=== PATIENT | male | born 1955 | race Hispanic/Latino ===

== ENCOUNTER 2023-08-18 07:52 | Emergency (ER) | payer OTHER ==
[~2023-08-18] VITALS: Ht 180.3 cm; Wt 90.7 kg
[2023-08-18 08:49] LABS: BASOPHILS # (AUTO) 0.05 K/uL (0.00-0.20); HEMATOCRIT 39.5 % (42-54); IMMATURE GRANULOCYTE ABSOLUTE 0.02 K/uL (0-1); LYMPHOCYTES # (AUTO) 1.6 K/uL (1.0-4.8); LYMPHOCYTES % (AUTO) 31.4 % (21.0-51.0); MEAN CORPUSCULAR HEMOGLOBIN 33.5 pg (27.0-33.0); MEAN CORPUSCULAR HGB CONC 34.4 g/dL (32.0-36.0); MEAN CORPUSCULAR VOLUME 97.3 fL (79-99); MONOCYTES # (AUTO) 0.5 K/uL (0.1-1.0); MONOCYTES % (AUTO) 9.7 % (3.0-13.0); NEUTROPHILS # (AUTO) 2.5 K/uL (1.8-7.7); NEUTROPHILS % (AUTO) 49.5 % (40.0-77.0); PLATELET COUNT (AUTO) 237 K/uL (130-400); RED BLOOD CELL COUNT(AUTO) 4.06 MIL/uL (4.50-6.20); RED CELL DISTRIBUTION WIDTH 12.3 % (11.0-15.5)
[2023-08-18 09:06] LABS: ALBUMIN 3.7 g/dL (3.5-5.0); BILIRUBIN,TOTAL 0.5 mg/dL (0.2-1.0); POTASSIUM 4.1 mmol/L (3.5-5.1); TOTAL PROTEIN, SERUM 7.7 g/dL (6.0-8.3)
[2023-08-18] MEDS ORDERED: IOHEXOL 350 MG/ML 100ML INFUS..BTL IV ONE ×2 (09:27→15:49)
[2023-08-18] MEDS ORDERED: ASPIRIN 325MG TAB PO ONE (09:30)
[2023-08-18 20:04] LABS: APPEARANCE,URINE CLEAR (CLEAR); BILIRUBIN,URINE NEGATIVE (NEGATIVE); COLOR,URINE COLORLESS (YELLOW); GLUCOSE, URINE (UA) NEGATIVE (NEGATIVE); KETONES,URINE NEGATIVE (NEGATIVE); LEUKOCYTE ESTERASE ,URINE NEGATIVE Leu/uL (NEGATIVE); NITRATE,URINE NEGATIVE (NEGATIVE); OCCULT BLOOD,URINE NEGATIVE (NEGATIVE); PROTEIN,URINE NEGATIVE (NEGATIVE); UROBILINOGEN,URINE 0.2 mg/dL (0.2-1.0)
[2023-08-18 20:06] LABS: ADD UA MICROSCOPIC YES
[2023-08-18 21:54] VITALS: BP 118/59; PULSE 69; RESP 18; O2SAT 99
== END 2023-08-18 22:57 | disposition short-term general hospital (02) ==
LOC: EDH 07:52
DX: I63.9 Cerebral infarction, unspecified (principal); I10 Essential (primary) hypertension; F32.A Depression, unspecified; Z79.82 Long term (current) use of aspirin
CPT/HCPCS: 99285; 70450; 84484; 80053; 85025; 81001; 36415; 70496; 70498; 93005; Q9967 ×2

== ENCOUNTER → 2025-01-17 | Outpatient (CLI) | payer OTHER ==
[2025-01-17 10:39] LABS: CREATININE 1.1 mg/dL (0.5-1.3)
== END | disposition home or self-care (01) ==
LOC: LAB 09:45
PROVIDERS: ATTEND Internal Medicine
DX: I27.20 Pulmonary hypertension, unspecified (principal)
CPT/HCPCS: 36415; 82565; 84520

== ENCOUNTER → 2025-01-21 | Outpatient (CLI) | payer OTHER ==
[~2025-01-21] MED LIST: IOHEXOL-350 50ML VIAL IV ONE
--- NOTE | 2025-01-21 14:31 | HMCIMG ---
CT angiogram chest CLINICAL INDICATION: Pulmonary hypertension, unspecified COMPARISON: None. CT Dose Index (CTDI): 113.50 mGy Dose Length Product (DLP): 1408.10 total mGy PROTOCOL: Contrast: 100 cc of Isovue-370, injected IV, no complications Examination is done at 2.5 millimeter volumetric acquisition after contrast administration. Photography is done at 5 millimeter thick intervals for the thorax. FINDINGS: There is no evidence of pulmonary embolism. The airway is intact. The trachea and major bronchi are unremarkable. No pulmonary infiltrates or mass lesions are seen. No pleural effusions are identified. The exam of the preethi and mediastinum is unremarkable. No evidence of hilar enlargement is seen. The aorta shows no aneurysmal dilatation or significant atheromatous calcification. There is no thoracic aortic dissection. No significant brachiocephalic vascular abnormalities are seen. The heart is unremarkable. It is not enlarged. No significant coronary arterial calcifications are seen. There is no pericardial effusion. The rib cage appears unremarkable. The soft tissues of the chest wall are unremarkable. The dorsal spine shows no significant abnormalities. Limited evaluation of the upper abdomen demonstrates no gross abnormalities. IMPRESSION: No evidence of pulmonary embolism. Clear lungs. This study was performed using dose reduction techniques to include automated exposure control and/or adjustment of the mA and/or kV according to patient size.
--- NOTE | 2025-01-21 17:02 | HMCSR ---
APPROVED REPORT EXAM: Two-dimensional and M-mode echocardiogram with Doppler and color Doppler. INDICATION ICD: I27.20 2D Dimensions RVDd4.0 cmLVEF(%)58.1 (>50%)LVED Vol(simp.)105.8 mL IVSd0.9 (0.7-1.1cm)FS(%)31 %LVES Vol(simp.)47.3 mL LVDd5.0 (3.8-5.6cm)LA (2D)4.3 (1.6-4.0cm)LVEF(%, simp.)55 % PWd1.0 (0.7-1.1cm)Ao Root(2D)3.7 (2.0-3.7cm)LA ESV INDEX (BP)42.73 mL/m2 LVDs3.5 (2.5-4.0cm)LVOT diam2.1 (1.8-2.4cm) IVC diam1.3 cm M-Mode Dimensions EPSS0.3 cm LA (MM)4.9 (1.6-4.0cm) Ao Root(MM)2.6 (2.0-3.7cm) Aortic Valve AoV Vmax1.3 m/Pierre Peak GR7.1 mmHgLVOT Vmax1.0 m/s AoV VTI0.3 mAo Mean GR3.8 mmHgLVOT VTI0.24 m ALFREDO (VMAX)2.78 cm2AVA (VTI) 2.8 cm2 Mitral Valve MV E Vmax68.3 cm/sDECEL Jmof633 ms MV A Uxew264.4 cm/sP 1/2 T63 ms E/A ratio0.7MVA (PHT)3.5 cm2 TDI E/E' Medial7.4E/E' Lateral7.1 Medial E' Peak V9.27 cm/sLateral E' Peak V9.56 cm/s Pulmonary Valve PV Vmax0.8 m/sPV VTI0.17 mPV Mean GR1.2 mmHg PV Peak GR2.6 mmHg Tricuspid Valve TR Vmax1.8 m/sRVSP13.6 mmHg TR Peak GR13.6 mmHg Left Ventricle The left ventricle is normal size. There is normal LV segmental wall motion. There is normal left lupe tricular wall thickness. LVEF is 50-55%. The left ventricular diastolic function is normal. Right Ventricle The right ventricle is normal size. The right ventricular systolic function is normal. Atria The left atrium is moderately dilated. The right atrium size is normal. Aortic Valve The aortic valve is normal in structure. No aortic regurgitation is present. There is no aortic valvu lar stenosis. Mitral Valve The mitral valve is normal in structure. Mitral regurgitation is trace There is no mitral valve steno sis. Tricuspid Valve The tricuspid valve is normal in structure. There is trivial tricuspid valve regurgitation noted. Pulmonic Valve Pulmonic valve is not well visualized. There is no pulmonic valvular regurgitation. Great Vessels The aortic root is normal in size. The IVC is normal in size and collapses >50% with inspiration. Pericardium There is no pericardial effusion. Other Information Quality : Average Conclusion The left ventricle is normal size. LVEF is 50-55% with normal LV segmental wall motion. The left ventricular diastolic function is normal. The right ventricular systolic function is normal. The left atrium is moderately dilated. No hemodynamically significant valvular abnormalities. There is no pericardial effusion.
== END | disposition home or self-care (01) ==
LOC: RAH 12:02
PROVIDERS: ATTEND Internal Medicine
DX: I27.20 Pulmonary hypertension, unspecified (principal)
CPT/HCPCS: 93306; 71260; Q9967

== ENCOUNTER → 2025-03-05 | Outpatient (CLI) | payer OTHER ==
[2025-03-05] MEDS: REGADENOSON 0.4 MG/5 ML PF SYG IVP ONE (09:45)
--- NOTE | 2025-03-06 07:45 | HMCSR ---
APPROVED REPORT TEST INDICATIONS Dyspnea Consent: The procedure was explained and understood by the patient. Informerd consent was witnessed Ray Olivarez Jr (N)(ARRT) First, low dose rest was performed then high dose stress. RESTING DATA: The resting ekg shows: NSR Rest SPECT myocardial perfusion imaging was performed in supine position minutes following the intra venous injection of 11 mCi of Tc-99 Sestamibi. Time of rest injection: 914 Date: 03/05/2025 PHARMACOLOGIC STRESS: Pharmacologic stress test was performed by injecting regadenoson 0.4 mg IV push followed by the intra venous injection of 27 mCi of Tc-99 Sestamibi. Time of stress injection: 0 Date: 03/05/2025 Heart Rate at time of stress injection: 56 bpm. The images were gated to evaluate regional wall motion and calculate left ventricular ejection fracti on. STRESS DETAILS Reason for Termination: Infusion complete Stress Symptoms: Dyspnea Max HR Achieved: 86 bpm % of APMHR Achieved: 66 Max Blood Pressure: 124/64 mmHg Stress ECG: NSR Conclusion No ischemia No infarct LV ejection fraction 50% Normal LV wall motion Normal LV size at rest and stress No increased lung uptake
== END | disposition home or self-care (01) ==
LOC: RAH 08:22
PROVIDERS: ATTEND Internal Medicine
DX: R06.02 Shortness of breath (principal)
CPT/HCPCS: 78452; 93017; J2785; A9500 ×2

== ENCOUNTER → 2025-05-02 | Outpatient (CLI) | payer OTHER ==
--- NOTE | 2025-05-03 08:47 | HMCSR ---
APPROVED REPORT EXAM: Two-dimensional and M-mode echocardiogram with Doppler and color Doppler. INDICATION ICD: I51.3 Contrast Details Indication: Rule out PFO Agent/Amount Used: Agitated Saline 2D Dimensions RVDd4.7 cmLVEF(%)63.2 (>50%)LVED Vol(simp.)112.0 mL IVSd0.9 (0.7-1.1cm)FS(%)34 %LVES Vol(simp.)51.0 mL LVDd5.1 (3.8-5.6cm)Ao Root(2D)3.4 (2.0-3.7cm)LVEF(%, simp.)55 % PWd1.0 (0.7-1.1cm)LVOT diam2.3 (1.8-2.4cm)LA ESV INDEX (BP)35.35 mL/m2 LVDs3.4 (2.5-4.0cm)IVC diam1.4 cm M-Mode Dimensions EPSS0.5 cm LA (MM)4.1 (1.6-4.0cm) Ao Root(MM)3.3 (2.0-3.7cm) Aortic Valve AoV Vmax1.4 m/Pierre Peak GR8.1 mmHgLVOT Vmax0.9 m/s AoV VTI0.3 mAo Mean GR4.4 mmHgLVOT VTI0.19 m ALFREDO (VMAX)2.85 cm2AVA (VTI) 2.8 cm2 Mitral Valve MV E Vmax73.9 cm/sDECEL Irsf970 ms MV A Vmax54.8 cm/sP 1/2 T58 ms E/A ratio1.3MVA (PHT)3.8 cm2 TDI E/E' Yffnum48.1E/E' Lateral9.6 Medial E' Peak V7.33 cm/sLateral E' Peak V7.70 cm/s Pulmonary Valve PV Vmax0.8 m/sPV VTI0.15 mPV Mean GR1.4 mmHg PV Peak GR2.4 mmHg Tricuspid Valve TR Vmax2.3 m/sRAP (EST) 3 xqPoCQQZ44.2 mmHg TR Peak GR23.2 mmHg Left Ventricle The left ventricle is normal size. There is normal left ventricular wall thickness. LVEF is 50-55%. T he left ventricular diastolic function is normal. Right Ventricle The right ventricle is moderately dilated. The right ventricular systolic function is normal. Atria The left atrium is mildly dilated. No evidence of PFO/ASD by agitated saline. The right atrium is mod erately dilated. Aortic Valve Aortic valve is trileaflet and opens well. No aortic regurgitation is present. There is no aortic matthew vular stenosis. Mitral Valve The mitral valve is normal in structure. There is mild mitral valve regurgitation noted. There is no mitral valve stenosis. Tricuspid Valve The tricuspid valve is normal in structure. There is trace tricuspid valve regurgitation noted. Pulmonic Valve The pulmonary valve is normal in structure. There is no pulmonic valvular regurgitation. Great Vessels The aortic root is normal in size. The IVC is normal in size and collapses >50% with inspiration. Pericardium There is no pericardial effusion. Other Information Quality : Adequate Conclusion LVEF is 50-55%. No evidence of PFO/ASD by agitated saline. There is mild mitral valve regurgitation noted.
== END | disposition home or self-care (01) ==
LOC: RAH 10:58
PROVIDERS: ATTEND Internal Medicine Cardiovascular Disease
DX: I34.0 Nonrheumatic mitral (valve) insufficiency (principal); R06.00 Dyspnea, unspecified
CPT/HCPCS: 93306; A4216